=== PATIENT | female | born 1965 | race Two or more races ===

== ENCOUNTER 2020-08-11 14:49 | Emergency (ER) | payer OTHER ==
[~2020-08-11] VITALS: Ht 157.5 cm; Wt 65.3 kg
[2020-08-11] MEDS ORDERED: MOTION RELIEF25 MG PO (17:27)
== END 2020-08-11 17:30 | disposition home or self-care (01) ==
LOC: ER 14:49
DX: R42 Dizziness and giddiness (principal)